=== PATIENT | female | born 1960 | race Caucasian/White ===

== ENCOUNTER → 2016-10-09 | Outpatient (CLI) | payer BC ==
--- NOTE | 2016-10-09 09:16 | REPMRS ---
Patient History The patient states she had a clinical breast exam in 10/07 Patient is postmenopausal. Family history of prostate cancer in father at age 50 or over. Digital Woman Screen Mammo: October 09, 2016 - Exam #: [id number] Bilateral CC and MLO view(s) were taken. Technologist: Janette Curry, Technologist Prior study comparison: October 08, 2015, digital woman screen mammo performed at [facility]. September 07, 2014, digital woman screen mammo performed at [facility]. September 06, 2013, digital woman screen mammo performed at [facility]. FINDINGS: There are scattered fibroglandular densities. There has been no change in the appearance of the mammogram from the prior studies. There is a mild amount of scattered fibroglandular density which is fairly symmetric. There is no interval development of dominant mass, architectural distortion, or clustered microcalcification suggestive of malignancy. ASSESSMENT: BI-RADS/ACR category 1 mammogram. Negative. Recommendation Routine screening mammogram in 1 year (for women over age 40). This mammogram was interpreted with the aid of an FDA-approved computer-aided dectection system. Electronically Signed By: Jed Pantoja MD 10/09/16 0916
== END ==
LOC: M WHC 08:10
PROVIDERS: ATTEND Nurse Practitioner Family
DX: Z12.31 Encounter for screening mammogram for malignant neoplasm of breast (principal)

== ENCOUNTER → 2017-10-12 | Outpatient (CLI) | payer BC | LOC: M WHC 08:10 | DX: Z12.31 Encounter for screening mammogram for malignant neoplasm of breast (principal) | CPT/HCPCS: 77067 ==

== ENCOUNTER → 2018-01-25 | Outpatient (REF) | payer BC ==
[2018-01-25 18:46] LABS: APPEARANCE, URINE HAZY (CLEAR); BACTERIA, URINE AUTO 1+ (NEGATIVE); BILIRUBIN, URINE AUTO NEGATIVE (NEGATIVE); BLOOD, URINE BLOOD NEGATIVE (NEGATIVE); COLOR, URINE YELLOW (YELLOW); GLUCOSE, URINE (UA) AUTO NEGATIVE (NEGATIVE); KETONE, URINE AUTO NEGATIVE (NEGATIVE); LEUKOCYTE ESTERASE, URINE AUTO 3+ (NEGATIVE); MUCUS, URINE SMALL (NEGATIVE); NITRITE, URINE AUTO POSITIVE (NEGATIVE); PROTEIN, URINE AUTO NEGATIVE (NEGATIVE); RBC, URINE AUTO 1 /HPF (0-3); SPECIFIC GRAVITY URINE AUTO 1.003 (1.002-1.035); SQUAMOUS EPITHELIAL CELL UR AU 1 /HPF (0-6); UROBILINOGEN, URINE AUTO 0.2 mg/dL (0.0-2.0); WBC, URINE AUTO 13 /HPF (0-3)
== END ==
LOC: M LAB REF 16:44
DX: N39.0 Urinary tract infection, site not specified (principal)
CPT/HCPCS: 81001

== ENCOUNTER → 2018-06-08 | Outpatient (REF) | payer BC ==
[2018-06-08 22:10] LABS: APPEARANCE, URINE CLEAR (CLEAR); BACTERIA, URINE AUTO 1+ (NEGATIVE); BILIRUBIN, URINE AUTO NEGATIVE (NEGATIVE); BLOOD, URINE BLOOD NEGATIVE (NEGATIVE); COLOR, URINE STRAW (YELLOW); GLUCOSE, URINE (UA) AUTO NEGATIVE (NEGATIVE); KETONE, URINE AUTO NEGATIVE (NEGATIVE); LEUKOCYTE ESTERASE, URINE AUTO NEGATIVE (NEGATIVE); NITRITE, URINE AUTO NEGATIVE (NEGATIVE); PROTEIN, URINE AUTO NEGATIVE (NEGATIVE); RBC, URINE AUTO 0 /HPF (0-3); SPECIFIC GRAVITY URINE AUTO 1.003 (1.002-1.035); SQUAMOUS EPITHELIAL CELL UR AU 0 /HPF (0-6); UROBILINOGEN, URINE AUTO 0.2 mg/dL (0.0-2.0); WBC, URINE AUTO 0 /HPF (0-3)
== END ==
LOC: M LAB REF 10:52
DX: N39.0 Urinary tract infection, site not specified (principal)

== ENCOUNTER → 2018-10-19 | Outpatient (CLI) | payer BC ==
--- NOTE | 2018-10-19 10:25 | REPMRS ---
Patient History The patient states she had a clinical breast exam in 09/2018. Patient is postmenopausal. Family history of prostate cancer at age 50 or over in father. Taking estrogen for 2 years. 3D TOMOSYNTHESIS WAS PERFORMED. Digital Woman Screen Mammo: October 19, 2018 - Exam #: [id number] Bilateral CC and MLO view(s) were taken. Technologist: Kathy Justice, Technologist Prior study comparison: October 12, 2017, digital woman screen mammo performed at [facility]. October 09, 2016, digital woman screen mammo performed at [facility]. FINDINGS: The breast tissue is heterogeneously dense. This may lower the sensitivity of mammography. There has been no change in the appearance of the mammogram from the prior studies. There is a moderate amount of residual fibroglandular tissue which is fairly symmetric. There is no interval development of dominant mass, areas of architectural distortion, or clustered microcalcification typical of malignancy. Assessment: BI-RADS/ACR category 1 mammogram. Negative Mammogram. Recommendation Routine screening mammogram in 1 year (for women over age 40). This mammogram was interpreted with the aid of an FDA-approved computer-aided dectection system. Electronically Signed By: Xavier Yanez MD 10/19/18 [id number]
== END ==
LOC: M WHC 08:19
PROVIDERS: ATTEND Nurse Practitioner Family
DX: Z12.31 Encounter for screening mammogram for malignant neoplasm of breast (principal); Z80.42 Family history of malignant neoplasm of prostate; N60.31 Fibrosclerosis of right breast; N60.32 Fibrosclerosis of left breast

== ENCOUNTER → 2018-10-19 | Outpatient (REF) | payer BC ==
[2018-10-22 15:03] LABS: HPV HYBRID CAPTURE II Negative (Negative)
== END ==
LOC: M SFHCWAGY 08:59
PROVIDERS: ATTEND Nurse Practitioner Family
DX: Z12.4 Encounter for screening for malignant neoplasm of cervix (principal)
CPT/HCPCS: 87624; G0123

== ENCOUNTER → 2019-10-19 | Outpatient (CLI) | payer BC ==
--- NOTE | 2019-10-19 10:55 | REP ---
BILATERAL SCREENING DIGITAL MAMMOGRAM WITH 3D TOMOSYNTHESIS: There are no palpable abnormalities or other breast complaints. The the patient states she had a clinical breast examination September,. The Tyrer-Cuzick Score is: 10.3% . Comparison is 10/12/2017 and 09/07/2014. There are scattered areas of fibroglandular density. There is a new 6 mm nodule laterally in the right breast as a change from the comparison studies. There are no focal suspicious findings in the left breast. There are no additional findings on 3D tomosynthesiss. Impression: BIRADS/ACR category 0 mammogram. Incomplete. Need additional imaging evaluation and / or prior mammograms for comparison. Recommendation: The the patient should return for spot compression views and ultrasound of the new 6 mm nodule in the right breast. This mammogram was interpreted with the aid of a FDA approved computer-aided detection system. A. Negative mammogram reports should not delay biopsy if a dominant or clinically suspicious mass is present. B. Not all breast cancers are identified by mammography or tomosynthesis. C. Adenosis and dense breasts may obscure an underlying neoplasm. Patient letter M0. Electronically Signed by Xavier Abrams MD 10/19/2019 10:47 A
== END ==
LOC: M WHC 08:23
PROVIDERS: ATTEND Nurse Practitioner Family
DX: Z12.31 Encounter for screening mammogram for malignant neoplasm of breast (principal)

== ENCOUNTER → 2019-10-25 | Outpatient (CLI) | payer BC ==
--- NOTE | 2019-10-25 12:41 | REP ---
Digital diagnostic unilateral right breast mammography with CAD and focused right breast sonography: History: Screening mammography October 19, 2019 was BIRADS category 0 incomplete because of a 6 mm nodular neodensity for which diagnostic imaging was recommended. Comparison is also made with mammography from October 19, 2018 and October 12, 2017. Mammographic findings: Magnified focal spot compression views of the right breast in the craniocaudal, mediolateral, and mediolateral oblique projection are obtained. These confirm the presence of a well-circumscribed relatively low density bilobed 6 mm nodule in the inferior and lateral quadrant of the right breast. No other mammographic finding. Sonographic findings: The right breast is scanned inferiorly and laterally from 6 o'clock to 9 o'clock. There is a bilobed cyst measuring 5 x 3 x 2 mm at 8 o'clock position in the right breast 5.7 cm from the nipple which is felt to account for the mammographic opacity. Heterogeneous fibroglandular echotexture is seen. No other sonographic finding. Impression: BIRADS 2: BI-RADS/ACR category 2 mammogram. Benign Findings. BIRADS category 2 benign findings. Repeat screening mammography recommended 1 year. This mammogram was interpreted with the aid of an FDA-approved computer-aided detection system. The patient states she had a clinical breast exam in September 2019. The patient letter being requested is M1. Electronically Signed by Jarrod Pantoja MD 10/25/2019 06:54 P
== END ==
LOC: M RAD 10:28
PROVIDERS: ATTEND Nurse Practitioner Family
DX: Z12.31 Encounter for screening mammogram for malignant neoplasm of breast (principal)

== ENCOUNTER 2020-05-03 10:00 | Day surgery (SDC) | payer BC ==
[2020-05-03] MEDS ORDERED: propofoL 200 MG/20 ML VIAL ONE (10:50)
[2020-05-03] MEDS ORDERED: fentaNYL 100 MCG/2 ML INJECTION (J3010) ONE (10:50)
[2020-05-03] MEDS ORDERED: LIDOCAINE 2% 100MG/5ML SDV (FOR ANES.) ONE (10:50)
[2020-07-30] MEDS ORDERED: ATOR40TA75 PO (09:02)
[2020-07-30] MEDS ORDERED: OMEP40CA97 PO (09:02)
[2020-07-30] MEDS ORDERED: ARTHROZENE PO (09:03)
[2020-07-30] MEDS ORDERED: CALC1TAB42 PO (09:03)
[2020-07-30] MEDS ORDERED: OMEG12002 PO (09:03)
[2020-07-30] MEDS ORDERED: B-12100010 PO (09:03)
[2020-07-30] MEDS ORDERED: MELO15TA28 PO (09:03)
[2020-07-30] MEDS ORDERED: ALLE180T33 PO (09:03)
[2020-07-30] MEDS ORDERED: VITA400C83 PO (09:03)
[2020-07-30] MEDS ORDERED: CRAN400C PO (09:03)
[2020-07-30] MEDS ORDERED: VENTAER INH (09:08)
[2020-07-30] MEDS ORDERED: [UNRECOGNIZED DRUG - CODE] IM (09:08)
== END 2020-05-03 11:30 | disposition home or self-care (01) ==
LOC: M SDC 10:00
PROVIDERS: ATTEND Surgery
DX: Z12.11 Encounter for screening for malignant neoplasm of colon (principal); Z80.0 Family history of malignant neoplasm of digestive organs; K62.1 Rectal polyp; D12.6 Benign neoplasm of colon, unspecified; K57.30 Diverticulosis of large intestine without perforation or abscess without bleeding; K44.9 Diaphragmatic hernia without obstruction or gangrene; K29.70 Gastritis, unspecified, without bleeding; D50.9 Iron deficiency anemia, unspecified; Z79.899 Other long term (current) drug therapy; Z88.1 Allergy status to other antibiotic agents; Z91.030 Bee allergy status; Z87.891 Personal history of nicotine dependence
CPT/HCPCS: 43235; 45385; 88305; J3010

== ENCOUNTER → 2020-08-04 | Outpatient (CLI) | payer BC ==
[~2020-08-04] MED LIST: ALLE180T33 PO; ARTHROZENE PO; ATOR40TA75 PO; B-12100010 PO; CALC1TAB42 PO; CRAN400C PO; MELO15TA28 PO; OMEG12002 PO; OMEP40CA97 PO; VENTAER INH; VITA400C83 PO; [UNRECOGNIZED DRUG - CODE] IM
== END ==
LOC: M LABSMTC 08:36
PROVIDERS: ATTEND Anesthesiology
DX: Z01.812 Encounter for preprocedural laboratory examination (principal); Z20.828 Contact with and (suspected) exposure to other viral communicable diseases

== ENCOUNTER 2020-08-09 07:56 | Day surgery (SDC) | payer BC ==
[~2020-08-09] VITALS: Ht 165.1 cm; Wt 79.4 kg
[~2020-08-09 07:56] MED LIST changes: +NS 1,000 ML IV ONE; +propofoL 200 MG/20 ML VIAL As Ordered ONE
--- NOTE | 2020-08-09 09:31 | ROOR ---
Patient Name: Milady Kinney Procedure Date: 08/09/2020 9:06 AM Date of : 1960 Age: 60 Room: [facility] Gender: Female Note Status: Finalized Procedure: Colonoscopy Indications: High risk colon cancer surveillance: Personal history of colonic polyps Providers: Jeferson Pitts Jr, MD Referring MD: Ilana Eli NP Requesting Provider: Medicines: Propofol per Anesthesia Complications: No immediate complications. Procedure: Pre-Anesthesia Assessment: - Prior to the procedure, a History and Physical was performed, and patient medications and allergies were reviewed. The patient is competent. The risks and benefits of the procedure and the sedation options and risks were discussed with the patient. All questions were answered and informed consent was obtained. Patient identification and proposed procedure were verified by the physician and the nurse in the pre-procedure area and in the procedure room. Mental Status Examination: alert and oriented. Airway Examination: normal oropharyngeal airway and neck mobility. Respiratory Examination: clear to auscultation. CV Examination: normal. ASA Grade Assessment: II - A patient with mild systemic disease. After reviewing the risks and benefits, the patient was deemed in satisfactory condition to undergo the procedure. The anesthesia plan was to use moderate sedation / analgesia (conscious sedation). Immediately prior to administration of medications, the patient was re-assessed for adequacy to receive sedatives. The heart rate, respiratory rate, oxygen saturations, blood pressure, adequacy of pulmonary ventilation, and response to care were monitored throughout the procedure. The physical status of the patient was re-assessed after the procedure. The Colonoscope was introduced through the anus and advanced to the cecum, identified by appendiceal orifice and ileocecal valve. The colonoscopy was performed without difficulty. The patient tolerated the procedure well. The quality of the bowel preparation was adequate. Findings: The rectum, recto-sigmoid colon, descending colon, ascending colon, cecum, appendiceal orifice and ileocecal valve appeared normal. Multiple small-mouthed diverticula were found in the sigmoid colon. A diminutive polyp was found in the transverse colon. The polyp was sessile. The polyp was removed with a cold snare. Resection and retrieval were complete. Impression: - The rectum, recto-sigmoid colon, descending colon, ascending colon, cecum, appendiceal orifice and ileocecal valve are normal. - Diverticulosis in the sigmoid colon. - One diminutive polyp in the transverse colon, removed with a cold snare. Resected and retrieved. Recommendation: - Discharge patient to home (ambulatory). - Repeat colonoscopy in 1 year for surveillance. - Return to my office in 1 year. Procedure Code(s): --- Professional --- 99599, Colonoscopy, flexible; with removal of tumor(s), polyp(s), or other lesion(s) by snare technique Diagnosis Code(s): --- Professional --- Z86.010, Personal history of colonic polyps K63.5, Polyp of colon K57.30, Diverticulosis of large intestine without perforation or abscess without bleeding CPT copyright 2019 [employer]. All rights reserved. The codes documented in this report are preliminary and upon die technician review may be revised to meet current compliance requirements. Jeferson Pitts MD Jeferson Pitts Jr, MD 08/09/2020 9:31:02 AM Electronically signed by Jeferson Pitts Jr, MD Number of Addenda: 0 Note Initiated On: 08/09/2020 9:06 AM Estimated Blood Loss: Estimated blood loss: none.
[2020-08-09 09:50] VITALS: BP 123/78
== END 2020-08-09 10:00 | disposition home or self-care (01) ==
LOC: M OPP 07:56
PROVIDERS: ATTEND Surgery
DX: Z12.11 Encounter for screening for malignant neoplasm of colon (principal); Z86.010 Personal history of colon polyps; D12.6 Benign neoplasm of colon, unspecified; K57.30 Diverticulosis of large intestine without perforation or abscess without bleeding; M19.90 Unspecified osteoarthritis, unspecified site; J45.909 Unspecified asthma, uncomplicated; E78.5 Hyperlipidemia, unspecified; Z87.891 Personal history of nicotine dependence; Z88.1 Allergy status to other antibiotic agents; Z88.2 Allergy status to sulfonamides; Z88.8 Allergy status to other drugs, medicaments and biological substances; Z79.899 Other long term (current) drug therapy

== ENCOUNTER → 2020-10-23 | Outpatient (CLI) | payer BC ==
[~2020-10-23] MED LIST changes: -NS 1,000 ML IV ONE; -propofoL 200 MG/20 ML VIAL As Ordered ONE
--- NOTE | 2020-10-23 13:00 | REPMRS ---
Patient History The patient states she had a clinical breast exam in September 2020. Family history of prostate cancer at age 50 or over in father. Taking estrogen for 2 years. Digital Woman Screen Mammo: October 23, 2020 - Exam #: [id number] Bilateral CC and MLO view(s) were taken. Technologist: RT Sundeep Prior study comparison: October 19, 2019, bilateral digital woman screen mammo performed at [facility]. October 19, 2018, bilateral digital woman screen mammo performed at [facility]. October 12, 2017, digital woman screen mammo performed at [facility]. FINDINGS: There are scattered fibroglandular densities. The Volpara volumetric breast density category is:B. The nodular opacity identified previously in the right breast is no longer apparent. There has been no change in the appearance of the mammogram from the prior studies. There is a mild amount of scattered fibroglandular density which is fairly symmetric. There is no interval development of dominant mass, architectural distortion, or grouped microcalcification suggestive of malignancy. 3-D tomosynthesis shows no additional findings. Assessment: BI-RADS/ACR category 1 mammogram. Negative Mammogram. Recommendation Routine screening mammogram of both breasts in 1 year (for women over age 40). This patient's [facility] Lifetime Breast Cancer Risk is estimated at %. This mammogram was interpreted with the aid of an FDA-approved computer-aided dectection system. Electronically Signed By: Jed Pantoja MD 10/23/20 1944
== END ==
LOC: M WHC 08:43
PROVIDERS: ATTEND Nurse Practitioner Family
DX: Z12.31 Encounter for screening mammogram for malignant neoplasm of breast (principal)

== ENCOUNTER → 2021-03-19 | Outpatient (REF) | payer BC ==
[~2021-03-19] MED LIST changes: +OMEP40CA4 PO; -OMEP40CA97 PO
== END ==
LOC: M LAB REF 21:51
PROVIDERS: ATTEND Physician Assistant Medical
DX: R30.0 Dysuria (principal)

== ENCOUNTER → 2021-08-31 | Outpatient (CLI) | payer BC ==
[~2021-08-31] MED LIST changes: +FERR325T82 PO; +FLUT15.820; +VITA-245 PO
== END ==
LOC: M LABSMTC 11:41
PROVIDERS: ATTEND Anesthesiology
DX: Z01.812 Encounter for preprocedural laboratory examination (principal); Z20.822 Contact with and (suspected) exposure to COVID-19

== ENCOUNTER 2021-09-05 10:27 | Day surgery (SDC) | payer BC ==
[~2021-09-05] VITALS: Ht 167.6 cm; Wt 88.0 kg
[~2021-09-05 10:27] MED LIST changes: +NS 1,000 ML IV ONE
[2021-09-05] MEDS ORDERED: LIDOCAINE 2% 100MG/5ML SDV (FOR ANES.) As Ordered ONE (11:39)
[2021-09-05] MEDS ORDERED: propofoL 200 MG/20 ML VIAL As Ordered ONE (11:39)
[2021-09-05 12:10] VITALS: BP 123/76
== END 2021-09-05 12:16 | disposition home or self-care (01) ==
LOC: M OPP 10:27
PROVIDERS: ATTEND Surgery
DX: Z12.11 Encounter for screening for malignant neoplasm of colon (principal); Z86.010 Personal history of colon polyps; K63.5 Polyp of colon; K57.30 Diverticulosis of large intestine without perforation or abscess without bleeding; Z79.899 Other long term (current) drug therapy; Z88.1 Allergy status to other antibiotic agents; Z88.2 Allergy status to sulfonamides; Z88.8 Allergy status to other drugs, medicaments and biological substances; Z91.030 Bee allergy status

== ENCOUNTER → 2021-11-20 | Outpatient (REF) | payer BC ==
[~2021-11-20] MED LIST changes: -NS 1,000 ML IV ONE
== END ==
LOC: M SFHCWAGY 10:19
PROVIDERS: ATTEND Specialist
DX: Z01.419 Encounter for gynecological examination (general) (routine) without abnormal findings (principal); Z12.4 Encounter for screening for malignant neoplasm of cervix

== ENCOUNTER → 2021-11-20 | Outpatient (CLI) | payer BC | LOC: M WHC 10:10 | PROVIDERS: ATTEND Specialist | DX: M85.80 Other specified disorders of bone density and structure, unspecified site (principal) ==

== ENCOUNTER → 2021-11-20 | Outpatient (CLI) | payer BC | LOC: M WHC 09:35 | PROVIDERS: ATTEND Specialist | DX: Z12.31 Encounter for screening mammogram for malignant neoplasm of breast (principal) ==

== ENCOUNTER → 2022-12-11 | Outpatient (CLI) | payer BC | LOC: M WHC 14:52 | PROVIDERS: ATTEND Nurse Practitioner Family | DX: Z12.31 Encounter for screening mammogram for malignant neoplasm of breast (principal) ==

== ENCOUNTER → 2022-12-11 | Outpatient (CLI) | payer BC ==
[2022-12-11 18:20] LABS: ALBUMIN 4.1 G/DL (3.2-5.2); ALKALINE PHOSPHATASE 72 U/L (46-116); ALT/SGPT 31 U/L (7.0-40); AST/SGOT 22 U/L (<34); BILIRUBIN,TOTAL 0.4 MG/DL (0.3-1.2); BLOOD UREA NITROGEN 16 MG/DL (9-23); CALCIUM LEVEL 9.7 MG/DL (8.3-10.6); CARBON DIOXIDE LEVEL 31 MMOL/L (20-31); CHLORIDE LEVEL 103 MMOL/L (98-107); CREATININE FOR GFR 0.64 MG/DL (0.55-1.30); GLOMERULAR FILTRATION RATE > 60.0 (>45); GLUCOSE, FASTING 94 MG/DL (74-106); POTASSIUM SERUM 4.7 MMOL/L (3.5-5.1); SODIUM LEVEL 139 MMOL/L (136-145); TOTAL PROTEIN 6.9 G/DL (5.7-8.2)
== END ==
LOC: M PLALAB 15:21
PROVIDERS: ATTEND Nurse Practitioner Family
DX: M81.0 Age-related osteoporosis without current pathological fracture (principal)

== ENCOUNTER → 2023-12-15 | Outpatient (REF) | payer BC, MEDICARE | LOC: M SFHCWAGY 17:59 | PROVIDERS: ATTEND Nurse Practitioner Family | DX: Z12.4 Encounter for screening for malignant neoplasm of cervix (principal); R87.610 Atypical squamous cells of undetermined significance on cytologic smear of cervix (ASC-US) | CPT/HCPCS: 87624; G0123 ==

== ENCOUNTER → 2023-12-15 | Outpatient (CLI) | payer BC, MEDICARE | LOC: M WHC 10:24 | PROVIDERS: ATTEND Nurse Practitioner Family | DX: Z12.31 Encounter for screening mammogram for malignant neoplasm of breast (principal); R92.323 Mammographic fibroglandular density, bilateral breasts ==

== ENCOUNTER → 2024-01-27 | Outpatient (CLI) | payer MEDICARE | LOC: M WHC 07:57 | PROVIDERS: ATTEND Nurse Practitioner Family | DX: M81.0 Age-related osteoporosis without current pathological fracture (principal) ==

== ENCOUNTER → 2024-12-27 | Outpatient (REF) | payer MEDICARE ==
[~2024-12-27] MED LIST changes: -CRAN400C PO; +CRANBERRY400 MG PO
== END ==
LOC: M SFHCWAGY 17:55
PROVIDERS: ATTEND Nurse Practitioner Family
DX: Z12.4 Encounter for screening for malignant neoplasm of cervix (principal); R87.610 Atypical squamous cells of undetermined significance on cytologic smear of cervix (ASC-US)
CPT/HCPCS: 87624; G0123

== ENCOUNTER → 2024-12-27 | Outpatient (CLI) | payer MEDICARE | LOC: M WHC 15:37 | PROVIDERS: ATTEND Nurse Practitioner Family | DX: Z12.31 Encounter for screening mammogram for malignant neoplasm of breast (principal); R92.323 Mammographic fibroglandular density, bilateral breasts ==